=== PATIENT | male | born 1955 | race Caucasian/White ===

== ENCOUNTER 2020-11-08 12:56 | Emergency (ER) | payer MEDICARE, OTHER ==
[2020-11-08 13:30] VITALS: RESP 18
[2020-11-08] MEDS ORDERED: KETOROLAC 15 MG/ML 1 ML VIAL IM STA (14:05)
--- NOTE | 2020-11-08 14:07 | ED ---
Back Pain HPI - General Chief Complaint: Back Pain/Injury Stated Complaint: Fall, back pain Time Seen by Provider: 11/08/20 13:55 Source: patient Limitations: no limitations - History of Present Illness Initial Comments: 65-year-old male presenting to emergency Department with a chief complaint of a fall. States this occurred about 3 days after he was walking out of the store. Patient reports he slipped and fell on his back. Denies any head injury, loss of consciousness or blood thinners. Patient reports she has localized tenderness to the posterior chest wall. He did also note some ecchymosis that has been gradually improving. Patient reports there is some pain with full inspiration, twisting left and right. Denies taking medication to alleviate the symptoms. States resting does help alleviate the pain. Denies any mid vertebral or paraspinal tenderness. Denies any paresthesias or weakness in the extremities. - Related Data Allergies Allergy/AdvReac Type Severity Reaction Status Date / Time No Known Allergies Allergy Verified 11/08/20 13:30 Review of Systems ROS Statement: Those systems with pertinent positive or pertinent negative responses have been documented in the HPI. ROS Other: All systems not noted in ROS Statement are negative. Past Medical History Past Medical History: Asthma History of Any Multi-Drug Resistant Organisms: None Reported Past Surgical History: No Surgical Hx Reported Past Psychological History: No Psychological Hx Reported Smoking Status: Never smoker Past Alcohol Use History: None Reported Past Drug Use History: None Reported General Exam Limitations: no limitations General appearance: alert, in no apparent distress Head exam: Present: atraumatic, normocephalic, normal inspection Eye exam: Present: normal appearance, PERRL, EOMI Pupils: Present: normal accommodation ENT exam: Present: normal exam, normal oropharynx, mucous membranes moist, TM's normal bilaterally, normal external ear exam Neck exam: Present: normal inspection, full ROM. Absent: tenderness, meningismus Respiratory exam: Present: normal lung sounds bilaterally, chest wall tenderness (Localized tenderness to the posterior chest wall). Absent: respiratory distress, wheezes, rales, rhonchi, stridor Cardiovascular Exam: Present: regular rate, normal rhythm, normal heart sounds GI/Abdominal exam: Present: soft. Absent: distended, tenderness, guarding Extremities exam: Present: normal inspection, full ROM, normal capillary refill. Absent: tenderness, pedal edema, joint swelling, calf tenderness Back exam: Present: normal inspection, full ROM, tenderness (Tenderness in the right posterior chest wall. No mid vertebral or paraspinal tenderness.). Absent: CVA tenderness (R), CVA tenderness (L), paraspinal tenderness, vertebral tenderness Neurological exam: Present: alert, oriented X3, normal gait Psychiatric exam: Present: normal affect, normal mood Skin exam: Present: warm, dry, intact, normal color Course Vital Signs 11/08/20 11/08/20 13:27 14:46 Temperature 98.0 F 97.5 F L Pulse Rate 73 66 Respiratory 18 18 Rate Blood Pressure 133/82 144/75 O2 Sat by Pulse 99 96 Oximetry Medical Decision Making - Medical Decision Making 65-year-old male presenting to the emergency department with a chief complaint of a fall. No head injury also consciousness or blood thinners. On physical examination, patient has localized tenderness to the posterior aspect of her right thoracic wall. There is also small region of ecchymosis where the localized tenderness is. Patient was given Toradol with some improvement in symptoms. X-ray of the chest and right-sided ribs reveals no acute fractures. I do suspect a rib contusion. Patient advised to follow-up with his primary care physician. He will be discharged with Flexeril. Advised not to drive or operate heavy machinery when taking medication. Strict return parameters were thoroughly discussed the patient was understanding and agreeable. He was given incentive spirometer. Case discussed with physician. Disposition Clinical Impression: Contusion of rib on right side, Fall Disposition: HOME SELF-CARE Condition: Stable Instructions (If sedation given, give patient instructions): Rib Contusion (ED) Additional Instructions: Take prescribed medication as directed. Alternate between Tylenol and Motrin for pain control. Return to emergency department if symptoms worsen. Is patient prescribed a controlled substance at d/c from ED?: No Referrals: Nonstaff,Physician [Primary Care Provider] - 1-2 days Time of Disposition: 14:58
--- NOTE | 2020-11-08 14:37 | XR ---
EXAMINATION TYPE: XR ribs RT w pa chest xray DATE OF EXAM: 11/08/2020 COMPARISON: None HISTORY: Upper posterior rib pain, fall TECHNIQUE: Ribs are examined in 2 projections. Exam is supplemented with a frontal chest. FINDINGS: Heart size is normal. Pulmonary vasculature is normal. Lungs are clear. No pneumothorax is evident. No displaced right rib fractures are evident. IMPRESSION: 1. No acute right rib fractures.
[2020-11-08 14:47] VITALS: BP 144/75; PULSE 66; TEMP 97.5
== END 2020-11-08 15:17 | disposition home or self-care (01) ==
LOC: EC 12:56
DX: S20.211A Contusion of right front wall of thorax, initial encounter (principal); W01.0XXA Fall on same level from slipping, tripping and stumbling without subsequent striking against object, initial encounter; Y93.89 Activity, other specified; Y92.512 Supermarket, store or market as the place of occurrence of the external cause
CPT/HCPCS: 99283 ×2; 96372 ×2; 71101; J1885

== ENCOUNTER 2020-11-09 04:14 | Emergency (ER) | payer MEDICARE, OTHER ==
[2020-11-09 04:19] VITALS: RESP 18; TEMP 98.1
[2020-11-09] MEDS ORDERED: SODIUM CHLORIDE 0.9% 1,000 ML IV STA (04:29)
[2020-11-09] MEDS ORDERED: HYDROmorphone 1 MG/ML 1 ML SYRINGE IVP STA ×2 (04:31→05:49)
[2020-11-09] MEDS ORDERED: KETOROLAC 15 MG/ML 1 ML VIAL IVP STA (04:31)
--- NOTE | 2020-11-09 04:32 | ED ---
Recheck HPI - General Chief Complaint: Back Pain/Injury Stated Complaint: revisit,back pain Time Seen by Provider: 11/09/20 04:17 Source: patient, RN notes reviewed, old records reviewed Mode of arrival: wheelchair Limitations: no limitations - History of Present Illness Initial Comments: This is a 65-year-old male presented by his today for evaluation regards to fall injury recently. Patient of fall about 3 days ago was doing some activities at a grocery store and fell landing on his right side of his chest. Does have right-sided chest pain right-sided back pain. Some difficulty when he takes a deep breath. Patient was seen in the ER earlier today and evaluated and discharged home. Patient states is feeling moderately improved on discharge the pain came back much more severe low at home despite taking pain medications. He has no significant shortness of breath no sweating. Patient states she has has severe right-sided middle back pain right-sided flank pain MD Complaint: other (Recheck from injury of fall) -: hour(s) (Original injury 3 days ago seen in the ER earlier today) Returns Today for: persistent/worsening pain related to initial visit Symptoms Since Prior Visit: worsening pain Associated Symptoms: none Treatments Prior to Arrival: Given Pain Meds on - Related Data Previous Rx's Medication Instructions Recorded Cyclobenzaprine [Flexeril] 5 mg PO TID PRN #15 tablet 11/08/20 Allergies Allergy/AdvReac Type Severity Reaction Status Date / Time No Known Allergies Allergy Verified 11/09/20 04:19 Review of Systems ROS Statement: Those systems with pertinent positive or pertinent negative responses have been documented in the HPI. ROS Other: All systems not noted in ROS Statement are negative. Past Medical History Past Medical History: Asthma History of Any Multi-Drug Resistant Organisms: None Reported Past Surgical History: No Surgical Hx Reported Past Psychological History: No Psychological Hx Reported Smoking Status: Never smoker Past Alcohol Use History: None Reported Past Drug Use History: None Reported General Exam Limitations: no limitations General appearance: alert, in no apparent distress, anxious, in distress (Patient is in significant distress secondary to pain,) Head exam: Present: atraumatic, normocephalic, normal inspection Eye exam: Present: normal appearance, PERRL, EOMI. Absent: scleral icterus, conjunctival injection, periorbital swelling ENT exam: Present: normal exam, mucous membranes moist Neck exam: Present: normal inspection. Absent: tenderness, meningismus, lymphadenopathy Respiratory exam: Present: normal lung sounds bilaterally. Absent: respiratory distress, wheezes, rales, rhonchi, stridor Cardiovascular Exam: Present: regular rate, normal rhythm, normal heart sounds. Absent: systolic murmur, diastolic murmur, rubs, gallop, clicks GI/Abdominal exam: Present: soft, normal bowel sounds. Absent: distended, tenderness, guarding, rebound, rigid Extremities exam: Present: normal inspection, full ROM, normal capillary refill. Absent: tenderness, pedal edema, joint swelling, calf tenderness Back exam: Present: normal inspection Neurological exam: Present: alert, oriented X3, CN II-XII intact Psychiatric exam: Present: normal affect, normal mood Skin exam: Present: warm, dry, intact, normal color. Absent: rash Course Vital Signs 11/09/20 11/09/20 04:16 06:13 Temperature 98.1 F 98.1 F Pulse Rate 69 64 Respiratory 18 18 Rate Blood Pressure 165/79 145/76 O2 Sat by Pulse 98 96 Oximetry - Reevaluation(s) Reevaluation #1: Medical record is reviewed Patient patient denying any trauma. Patient is informed of results here in the ER and questions have been answered Patient's pain is now controlled and he feels good for discharge Medical Decision Making - Medical Decision Making 65 male 3 days after fall with right ninth rib fracture isolated no pneumothorax. Pain is well-controlled here in the ER patient can be discharged home - Lab Data Result diagrams: 11/09/20 04:49 11/09/20 04:49 Lab Results 11/09/20 11/09/20 11/09/20 Range/Units 04:49 04:49 04:49 WBC 10.2 (3.8-10.6) k/uL RBC 5.37 (4.30-5.90) m/uL Hgb 15.6 (13.0-17.5) gm/dL Hct 48.3 (39.0-53.0) % MCV 89.8 (80.0-100.0) fL MCH 29.0 (25.0-35.0) pg MCHC 32.3 (31.0-37.0) g/dL RDW 13.3 (11.5-15.5) % Plt Count 161 (150-450) k/uL MPV 9.3 Neutrophils % 69 % Lymphocytes % 16 % Monocytes % 9 % Eosinophils % 4 % Basophils % 1 % Neutrophils # 7.0 (1.3-7.7) k/uL Lymphocytes # 1.7 (1.0-4.8) k/uL Monocytes # 0.9 (0-1.0) k/uL Eosinophils # 0.4 (0-0.7) k/uL Basophils # 0.1 (0-0.2) k/uL PT 9.5 (9.0-12.0) sec INR 0.9 (<1.2) APTT 24.1 (22.0-30.0) sec Sodium 140 (137-145) mmol/L Potassium 4.6 (3.5-5.1) mmol/L Chloride 108 H (98-107) mmol/L Carbon Dioxide 25 (22-30) mmol/L Anion Gap 7 mmol/L BUN 20 (9-20) mg/dL Creatinine 1.19 (0.66-1.25) mg/dL Est GFR (CKD-EPI)AfAm 73 (>60 ml/min/1.73 sqM) Est GFR (CKD-EPI)NonAf 63 (>60 ml/min/1.73 sqM) Glucose 126 H (74-99) mg/dL Plasma Lactic Acid Rikki (0.7-2.0) mmol/L Calcium 9.2 (8.4-10.2) mg/dL Phosphorus 4.4 (2.5-4.5) mg/dL Magnesium 2.1 (1.6-2.3) mg/dL Total Bilirubin 0.4 (0.2-1.3) mg/dL AST 27 (17-59) U/L ALT 31 (4-49) U/L Alkaline Phosphatase 64 (38-126) U/L Creatine Kinase 120 (55-170) U/L Troponin I (0.000-0.034) ng/mL Total Protein 7.0 (6.3-8.2) g/dL Albumin 4.0 (3.5-5.0) g/dL 11/09/20 11/09/20 Range/Units 04:49 04:49 WBC (3.8-10.6) k/uL RBC (4.30-5.90) m/uL Hgb (13.0-17.5) gm/dL Hct (39.0-53.0) % MCV (80.0-100.0) fL MCH (25.0-35.0) pg MCHC (31.0-37.0) g/dL RDW (11.5-15.5) % Plt Count (150-450) k/uL MPV Neutrophils % % Lymphocytes % % Monocytes % % Eosinophils % % Basophils % % Neutrophils # (1.3-7.7) k/uL Lymphocytes # (1.0-4.8) k/uL Monocytes # (0-1.0) k/uL Eosinophils # (0-0.7) k/uL Basophils # (0-0.2) k/uL PT (9.0-12.0) sec INR (<1.2) APTT (22.0-30.0) sec Sodium (137-145) mmol/L Potassium (3.5-5.1) mmol/L Chloride (98-107) mmol/L Carbon Dioxide (22-30) mmol/L Anion Gap mmol/L BUN (9-20) mg/dL Creatinine (0.66-1.25) mg/dL Est GFR (CKD-EPI)AfAm (>60 ml/min/1.73 sqM) Est GFR (CKD-EPI)NonAf (>60 ml/min/1.73 sqM) Glucose (74-99) mg/dL Plasma Lactic Acid Rikki 1.1 (0.7-2.0) mmol/L Calcium (8.4-10.2) mg/dL Phosphorus (2.5-4.5) mg/dL Magnesium (1.6-2.3) mg/dL Total Bilirubin (0.2-1.3) mg/dL AST (17-59) U/L ALT (4-49) U/L Alkaline Phosphatase (38-126) U/L Creatine Kinase (55-170) U/L Troponin I <0.012 (0.000-0.034) ng/mL Total Protein (6.3-8.2) g/dL Albumin (3.5-5.0) g/dL - Radiology Data Radiology results: report reviewed (CT chest his abdomen and pelvis does show significant ninth rib fracture), image reviewed Disposition Clinical Impression: Mechanical back pain, Fall, Right rib fracture, Contusion of rib on right side Disposition: ADMITTED IP TO THIS [facility] Condition: Good Instructions (If sedation given, give patient instructions): Rib Fracture (ED) Is patient prescribed a controlled substance at d/c from ED?: No Referrals: None,Stated [REFERRING] - 1-2 days
[2020-11-09 05:00] LABS: Basophils # (A) 0.1 k/uL (0-0.2); Basophils % (A) 1 %; Eosinophils # (A) 0.4 k/uL (0-0.7); Eosinophils % (A) 4 %; HCT 48.3 % (39.0-53.0); HGB 15.6 gm/dL (13.0-17.5); Lymphocytes # (A) 1.7 k/uL (1.0-4.8); Lymphocytes % (A) 16 %; MCHC 32.3 g/dL (31.0-37.0); MCV 89.8 fL (80.0-100.0); Mean Platelet Volume 9.3; Monocytes # (A) 0.9 k/uL (0-1.0); Monocytes % (A) 9 %; Neutrophils % (A) 69 %; Platelet Count 161 k/uL (150-450); RBC 5.37 m/uL (4.30-5.90); RDW 13.3 % (11.5-15.5); WBC 10.2 k/uL (3.8-10.6)
[2020-11-09 05:10] LABS: INR 0.9 (<1.2); Partial Thromboplastin Time 24.1 sec (22.0-30.0); Prothrombin Time 9.5 sec (9.0-12.0)
--- NOTE | 2020-11-09 05:38 | CT ---
EXAM: CT Angiography Chest With Intravenous Contrast CLINICAL HISTORY: ITS.REASON CT Reason: pain TECHNIQUE: Axial computed tomographic angiography images of the chest with intravenous contrast. CTDI is 14.885 mGy and DLP is 415.2 mGy-cm. This CT exam was performed using one or more of the following dose reduction techniques: automated exposure control, adjustment of the mA and/or kV according to patient size, and/or use of iterative reconstruction technique. MIP reconstructed images were created and reviewed. COMPARISON: No relevant prior studies available. FINDINGS: Artifacts: Motion artifact. Pulmonary arteries: No evidence of PE. Some peripheral vessels not well seen. Aorta: No aortic aneurysm or dissection. Lungs: Mild patchy atelectasis or pneumonitis. Pleural space: No significant effusion. No pneumothorax. Heart: No significant pericardial effusion. Bones/joints: Fracture of the right posterior ninth rib. Soft tissues: Unremarkable as visualized. Lymph nodes: Unremarkable. IMPRESSION: 1. No evidence of PE or aortic dissection. 2. Mild patchy atelectasis or pneumonitis. 3. Fracture of the right posterior ninth rib.
[2020-11-09 05:45] LABS: Calcium 9.2 mg/dL (8.4-10.2); Magnesium 2.1 mg/dL (1.6-2.3); Phosphorus 4.4 mg/dL (2.5-4.5); Potassium 4.6 mmol/L (3.5-5.1); Total Bilirubin 0.4 mg/dL (0.2-1.3)
--- NOTE | 2020-11-09 05:45 | CT ---
EXAM: CT Abdomen and Pelvis With Intravenous Contrast CLINICAL HISTORY: ITS.REASON CT Reason: pain TECHNIQUE: Axial computed tomography images of the abdomen and pelvis with intravenous contrast. CTDI is 29.285 mGy and DLP is 1226.8 mGy-cm. This CT exam was performed using one or more of the following dose reduction techniques: automated exposure control, adjustment of the mA and/or kV according to patient size, and/or use of iterative reconstruction technique. COMPARISON: No relevant prior studies available. FINDINGS: ABDOMEN: Liver: Fatty liver. Gallbladder and bile ducts: Unremarkable. Pancreas: Unremarkable. Spleen: Unremarkable. Adrenals: Unremarkable. Kidneys and ureters: No hydronephrosis. Stomach and bowel: Fluid in the small bowel with areas of mild colonic wall thickening or underdistention. Scattered colonic diverticula. PELVIS: Appendix: Normal caliber appendix. Bladder: Unremarkable. Reproductive: Heterogeneous enlarged prostate. ABDOMEN and PELVIS: Intraperitoneal space: See below. Bones/joints: L5 pars defects. Soft tissues: Small fat-containing umbilical and inguinal hernias. Vasculature: Atherosclerotic disease. Lymph nodes: Mesenteric stranding with small lymph nodes, can be seen with mesenteric adenitis/panniculitis. IMPRESSION: 1. Fluid in the small bowel with areas of mild colonic wall thickening or underdistention. Correlate clinically regarding enterocolitis. 2. Mesenteric stranding with small lymph nodes, can be seen with mesenteric adenitis/panniculitis. 3. Additional incidental findings, as above.
[2020-11-09] MEDS ORDERED: traMADol 50 MG STARTER PACK 3 TAB BTL PO STA (05:57)
[2020-11-09] MEDS ORDERED: traMADol 50 MG TAB PO STA (05:57)
[2020-11-09 06:14] VITALS: BP 145/76; PULSE 64
== END 2020-11-09 06:14 | disposition other institution (70) ==
LOC: EC 04:14
DX: S22.31XA Fracture of one rib, right side, initial encounter for closed fracture (principal); S20.211A Contusion of right front wall of thorax, initial encounter; W18.30XA Fall on same level, unspecified, initial encounter; Y92.512 Supermarket, store or market as the place of occurrence of the external cause
CPT/HCPCS: 36415; 80053; 82550; 83605; 83735; 84100; 84484; 85025; 85610; 85730; 71275; 74177; 99285; 96374; 96375; 96376; 96361; J1170; J1885; Q9967